=== PATIENT | male | born 1960 | race Caucasian/White ===

== ENCOUNTER 2019-05-17 13:55 | Emergency (ER) | payer MEDICARE, MEDICAID ==
[~2019-05-17] VITALS: Ht 175.3 cm; Wt 78.0 kg
[~2019-05-17 13:55] MED LIST: ALBU0.63 NEB; ALBU2.5V NEB; AMOX1TAB12 PO; BENZ1TAB61 PO; BENZ2AMP4 PO; BUDE180A INH; DIAZ5TAB4 PO; DOCU240C53 PO; FLUO10CA13 PO; FLUT12AE2; HALO5TAB5 PO; LEVO750T26 PO; METF100010 PO; METH32TA PO; MIRT-34 PO; MIRT30TA4 PO; MULT-486 PO; MULT1CAP33 PO; NICO-487 TD; PRED-402 PO; PRED20TA PO; PRED50TA PO; PRO AIR; TIOT18CA INH
--- NOTE | 2019-05-17 14:15 | NUR ---
MD AT BEDSIDE FOR EXAM, NEW ORDERS RECEIVED.
[2019-05-17 14:20] VITALS: BP 109/67
--- NOTE | 2019-05-17 14:21 | NUR ---
PT ARRIVED TO ROOM 17 BIB [facility] FOR CHEST PRESSURE WHEN BEARING DOWN FOR BM, PER [facility] REPORT, CHEST PRESSURE RESOLVED WHEN PT STOPPED BEARING DOWN. PT ALERT, DRESSED IN GOWN AND ATTACHED TO MONITOR, CALL LIGHT WITHIN REACH AND SIDERAILS X [address] PIV ESTABLISHED COOK ENCHILADA BY EMS, PT WEARING 3L O2, HOME O2 FOR HX COPD. PT HAS HX STROKE AND HAS APHASIA AND SLURRED SPEECH BASELINE.
[2019-05-17 14:31] LABS: TROPONIN I < 0.015 ng/mL (0.000-0.045)
--- NOTE | 2019-05-17 14:58 | NUR ---
PLAN TO DISCHARGE PT, PT TO D/C VIA [facility].
--- NOTE | 2019-05-17 15:44 | NUR ---
PIV REMOVED, PT TO D/C AT 1600 VIA [facility].
--- NOTE | 2019-05-17 15:57 | NUR ---
PT D/C BACK TO [facility] WITH [facility]. Patient/Caregiver given discharge instructions and they have confirmed that they understand the instructions. Patient ESCORTED OUT VIA WHEELCHAIR.
== END 2019-05-17 15:58 | disposition home or self-care (01) ==
LOC: ED 15:22
DX: R07.89 Other chest pain (principal); I10 Essential (primary) hypertension; I48.91 Unspecified atrial fibrillation; J44.9 Chronic obstructive pulmonary disease, unspecified; F20.9 Schizophrenia, unspecified; I25.2 Old myocardial infarction
CPT/HCPCS: 36415; 71045; 84484; 93005; 99284

== ENCOUNTER 2019-08-01 12:39 | Inpatient (IN) | payer MEDICARE, MEDICAID ==
[~2019-08-01] VITALS: Ht 172.7 cm; Wt 75.6 kg
[~2019-08-01 12:39] MED LIST changes: +MIDAZOLAM 1 MG/ML, 5ML ONE; +PROPOFOL 100 ML IV ONE; +SUCCINYLCHOLINE 20 MG/ML, 10ML ONE; +VECURONIUM 10 MG ONE
--- NOTE | 2019-08-01 12:44 | NUR ---
MD Rodney & RT Cassie at [facility] preparing to intubate d/t pt's respiratory distress. 20 mg etomidate administered at this time 100 succ @ 1245 Pt successfully intubated @ 1246, 8.0 ETT 24 @ the lips.
[2019-08-01] MEDS ORDERED: SODIUM CHLORIDE 0.9% 1,000 ML IV ONE (12:49)
[2019-08-01] MEDS ORDERED: SODIUM CHLORIDE 0.9% 1,000ML IVBOLUS ONE (13:00)
[2019-08-01] MEDS ORDERED: methylPREDNISolone SOD SUCC 125 MG/2 ML IV ONE (13:00)
[2019-08-01] MEDS ORDERED: ETOMIDATE 20 MG/10 ML IV ONE (13:00)
[2019-08-01] MEDS ORDERED: MIDAZOLAM 1 MG/ML, 2ML IVPush ONE (13:00)
[2019-08-01] MEDS ORDERED: SODIUM CHLORIDE FLUSH 10ML SYR IVF ONE (13:00)
[2019-08-01] MEDS ORDERED: SUCCINYLCHOLINE 20 MG/ML, 10ML IVPush ONE (13:00)
[2019-08-01] MEDS ORDERED: PROPOFOL 100 ML IV PRN ×2 (13:08→14:51)
[2019-08-01 13:25] LABS: FIO2 70 %
[2019-08-01 13:28] LABS: MEAN CORPUSCULAR HEMOGLOBIN 32.1 pg (27.5-34.5); MEAN CORPUSCULAR HGB CONC 32.8 g/dL (33.2-36.2); MEAN CORPUSCULAR VOLUME 98.1 fL (81-97); MEAN PLATELET VOLUME 6.7 fL (7.4-10.4); PLATELET COUNT 345 x10^3/uL (130-400); RED BLOOD COUNT 3.73 x10^6/uL (4.38-5.82); RED CELL DISTRIBUTION WIDTH 14.3 % (9.4-14.8)
--- NOTE | 2019-08-01 13:30 | NUR ---
NG & hancock being placed, pt recieving 2L bolus, pt has received 400mL [employer] from [facility]. see paper chart for vital signs.
[2019-08-01 13:41] LABS: ALANINE AMINOTRANSFERASE 14 U/L (12-78); ALBUMIN 2.7 g/dL (3.4-5.0); ANION GAP 6 mmol/L (5-15); CALCIUM 8.2 mg/dL (8.5-10.1); CHLORIDE 100 mmol/L (98-107); CREATININE 1.76 mg/dL (0.7-1.3)
[2019-08-01 13:45] LABS: ALKALINE PHOSPHATASE 61 U/L (45-117); BILIRUBIN,TOTAL 0.4 mg/dL (0.2-1.0); INTERNATIONAL NORMALIZED RATIO 2.26 (0.93-1.1); TOTAL PROTEIN 5.4 g/dL (6.4-8.2); TROPONIN I < 0.015 ng/mL (0.000-0.045)
[2019-08-01] MEDS ORDERED: AZITHROMYCIN 500 MG in SODIUM CHLORIDE 0.9% 250 ML IVPB ONE (14:00)
[2019-08-01] MEDS ORDERED: CEFTRIAXONE PMX 1GM/50ML 50 ML IVPB ONE (14:00)
[2019-08-01] MEDS ORDERED: methylPREDNISolone SOD SUCC 125 MG/2 ML ONE (14:01)
[2019-08-01 14:02] LABS: MD YES
[2019-08-01 14:03] LABS: BANDS%(MANUAL) 13 % (0-7); LYMPH#(MANUAL) 0.62 x10^3/uL (1-3.4); LYMPHS% (MANUAL) 3 % (22-44); METAMYELOCYTES# (MANUAL) 0.21 x10^3/uL (0-0); METAMYELOCYTES% (MANUAL) 1 % (0-1); MONOS#(MANUAL) 0.42 x10^3/uL (0.3-2.7); MONOS% (MANUAL) 2 % (2-9); SEG#(MANUAL) 16.85 x10^3/uL (1.8-6.8); SEGS% (MANUAL) 81 % (42-75)
[2019-08-01 14:05] LABS: <PLATELET ESTIMATE> ADEQUATE; <PLT MORPHOLOGY> NORMAL PLT MORPH; <RBC MORPHOLOGY> NORMAL; TOXIC GRAN 1+
[2019-08-01] MEDS ORDERED: NOREPINEPHRINE 4 MG in SODIUM CHLORIDE 0.9% 246 ML IV PRN (14:29)
--- NOTE | 2019-08-01 14:46 | NUR ---
MD Rodney at bedside placing CVL for initiation of vasopressors
[2019-08-01] MEDS: SODIUM CHLORIDE 0.9% 1,000 ML IV SCH ×2 (15:00→21:43)
[2019-08-01] MEDS ORDERED: LIDOCAINE-MPF 1%, 2ML ENDO PRN (15:00)
[2019-08-01] MEDS ORDERED: CEFTRIAXONE PMX 1GM/50ML 50 ML IV SCH (15:00)
[2019-08-01] MEDS ORDERED: SENNA 176 MG/5 ML ORAL SOL NG PRN (15:00)
[2019-08-01] MEDS ORDERED: ENOXAPARIN 40 MG/0.4 ML SQ SCH (15:00)
[2019-08-01] MEDS ORDERED: LACTULOSE 20 GM/30 ML UDC NG PRN (15:00)
[2019-08-01] MEDS ORDERED: PHARMACY MAY ADJ FOR RENAL FX MC SCH (15:00)
[2019-08-01] MEDS ORDERED: BISACODYL 10 MG SUPP PR PRN (15:00)
[2019-08-01] MEDS ORDERED: CEFTRIAXONE PMX 1GM/50ML 50 ML ONE (15:03)
[2019-08-01] MEDS ORDERED: SODIUM CHLORIDE FLUSH 10ML SYR IVF PRN (15:30)
[2019-08-01] MEDS ORDERED: MIDAZOLAM 1 MG/ML, 5ML IVPush ONE (16:00)
[2019-08-01] MEDS ORDERED: VECURONIUM 10 MG IVPush ONE (16:00)
[2019-08-01] MEDS ORDERED: AMIODARONE 200 MG TABLET PO ONE (16:00)
[2019-08-01] MEDS: RIVAROXABAN 20 MG TABLET PO SCH (16:27)
[2019-08-01] MEDS: FAMOTIDINE 20 MG/2 ML IV SCH ×2 (16:29→21:39)
[2019-08-01 17:41] LABS: AMPHETAMINE SCREEN, URINE Negative (Negative); BARBITURATE SCREEN, URINE Negative (Negative); BENZODIAZEPINE SCREEN, URINE Positive (Negative); CANNABINOID SCREEN, URINE Negative (Negative); COCAINE SCREEN, URINE Negative (Negative); METHADONE SCREEN, URINE Negative (Negative); OPIATE SCREEN, URINE Negative (Negative)
[2019-08-01] MEDS: ALBUTEROL/IPRATROPIUM 2.5MG/0.5MG, 3 ML INLINE SCH ×2 (18:15→22:15)
[2019-08-01] MEDS ORDERED: ALBUTEROL/IPRATROPIUM 2.5MG/0.5MG, 3 ML INLINE SCH (19:00)
[2019-08-01] MEDS ORDERED: IPRATROPIUM 0.5 MG/2.5 ML INHA NPPB SCH (21:00)
[2019-08-01] MEDS: BUDESONIDE 0.5 MG/2 ML INHA NPPB SCH (21:00)
[2019-08-01] MEDS: NOREPINEPHRINE 4 MG in SODIUM CHLORIDE 0.9% 246 ML IV PRN (21:38)
[2019-08-01] MEDS: RISPERIDONE 2 MG TABLET PO SCH (21:39)
[2019-08-01] MEDS: MIRTAZAPINE 15 MG TABLET PO SCH (21:39)
[2019-08-01] MEDS: BENZTROPINE 1 MG TABLET PO SCH (21:39)
[2019-08-01] MEDS: methylPREDNISolone SOD SUCC 125 MG/2 ML IVPush SCH (21:39)
[2019-08-02] MEDS: NOREPINEPHRINE 4 MG in SODIUM CHLORIDE 0.9% 246 ML IV PRN (00:56)
[2019-08-02] MEDS: ALBUTEROL/IPRATROPIUM 2.5MG/0.5MG, 3 ML INLINE SCH ×3 (01:56→11:00)
[2019-08-02] MEDS: FAMOTIDINE 20 MG/2 ML IV SCH ×2 (02:08→15:37)
[2019-08-02] MEDS: methylPREDNISolone SOD SUCC 125 MG/2 ML IVPush SCH ×4 (02:08→22:11)
[2019-08-02 03:59] VITALS: BP 134/78
[2019-08-02 04:58] LABS: MEAN CORPUSCULAR HEMOGLOBIN 32.1 pg (27.5-34.5); MEAN CORPUSCULAR HGB CONC 32.7 g/dL (33.2-36.2); MEAN CORPUSCULAR VOLUME 98.2 fL (81-97); MEAN PLATELET VOLUME 6.9 fL (7.4-10.4); PLATELET COUNT 332 x10^3/uL (130-400); RED BLOOD COUNT 3.76 x10^6/uL (4.38-5.82); RED CELL DISTRIBUTION WIDTH 14.7 % (9.4-14.8)
[2019-08-02 05:05] LABS: ANION GAP 3 mmol/L (5-15); CALCIUM 8.3 mg/dL (8.5-10.1); CHLORIDE 111 mmol/L (98-107); CREATININE 0.79 mg/dL (0.7-1.3)
[2019-08-02 05:07] LABS: MD YES
[2019-08-02 05:09] LABS: BANDS%(MANUAL) 16 % (0-7); LYMPH#(MANUAL) 1.02 x10^3/uL (1-3.4); LYMPHS% (MANUAL) 4 % (22-44); METAMYELOCYTES# (MANUAL) 2.05 x10^3/uL (0-0); METAMYELOCYTES% (MANUAL) 8 % (0-1); SEG#(MANUAL) 18.43 x10^3/uL (1.8-6.8); SEGS% (MANUAL) 72 % (42-75)
[2019-08-02 05:10] LABS: <PLATELET ESTIMATE> ADEQUATE; <PLT MORPHOLOGY> NORMAL PLT MORPH; <RBC MORPHOLOGY> NORMAL
[2019-08-02] MEDS: BUDESONIDE 0.5 MG/2 ML INHA NPPB SCH ×3 (06:38→19:37)
[2019-08-02] MEDS: FLUOXETINE HCL 20 MG CAPSULE PO SCH (08:15)
[2019-08-02] MEDS: BENZTROPINE 1 MG TABLET PO SCH ×2 (08:15→20:26)
[2019-08-02] MEDS: RISPERIDONE 2 MG TABLET PO SCH ×2 (08:15→20:26)
[2019-08-02] MEDS: ACETAMINOPHEN 325 MG TABLET PO PRN (08:15)
[2019-08-02] MEDS ORDERED: BUDESONIDE 180 MCG INH SCH (09:00)
[2019-08-02] MEDS ORDERED: TEMPLATE NON-FORMULARY MED. (Tiotropium Bromide** (Spiriva**) 18 MCG) INH SCH (09:00)
[2019-08-02] MEDS: DOXYCYCLINE 100 MG in DEXTROSE 5% 250 ML IV SCH ×2 (10:34→22:11)
[2019-08-02] MEDS: ALBUTEROL/IPRATROPIUM 2.5MG/0.5MG, 3 ML NPPB SCH ×4 (11:00→20:05)
[2019-08-02] MEDS: SODIUM CHLORIDE 0.9% 1,000 ML IV SCH (12:00)
[2019-08-02] MEDS ORDERED: ALBUTEROL/IPRATROPIUM 2.5MG/0.5MG, 3 ML NPPB SCH (15:00)
[2019-08-02] MEDS ORDERED: AZITHROMYCIN 500 MG in SODIUM CHLORIDE 0.9% 250 ML IV SCH (15:00)
[2019-08-02] MEDS: RIVAROXABAN 20 MG TABLET PO SCH (18:31)
[2019-08-02 18:45] VITALS: BP 110/72
[2019-08-02] MEDS: MIRTAZAPINE 15 MG TABLET PO SCH (20:26)
[2019-08-03 00:02] VITALS: BP 119/74
[2019-08-03] MEDS: ALBUTEROL/IPRATROPIUM 2.5MG/0.5MG, 3 ML NPPB SCH ×5 (02:41→20:33)
[2019-08-03 04:00] VITALS: BP 120/80
[2019-08-03] MEDS: FAMOTIDINE 20 MG/2 ML IV SCH (04:15)
[2019-08-03] MEDS: methylPREDNISolone SOD SUCC 125 MG/2 ML IVPush SCH ×2 (04:15→09:30)
[2019-08-03 05:58] LABS: MEAN CORPUSCULAR HEMOGLOBIN 31.3 pg (27.5-34.5); MEAN CORPUSCULAR HGB CONC 32.3 g/dL (33.2-36.2); MEAN CORPUSCULAR VOLUME 96.8 fL (81-97); MEAN PLATELET VOLUME 7.1 fL (7.4-10.4); PLATELET COUNT 298 x10^3/uL (130-400); RED BLOOD COUNT 3.29 x10^6/uL (4.38-5.82); RED CELL DISTRIBUTION WIDTH 15.1 % (9.4-14.8)
[2019-08-03 06:06] LABS: ANION GAP 4 mmol/L (5-15); CALCIUM 9.3 mg/dL (8.5-10.1); CHLORIDE 110 mmol/L (98-107); CREATININE 0.54 mg/dL (0.7-1.3)
[2019-08-03 06:20] LABS: MD YES
[2019-08-03 06:23] LABS: BAND#(MANUAL) 2.22 x10^3/uL; BANDS%(MANUAL) 12 % (0-7); LYMPH#(MANUAL) 0.19 x10^3/uL (1-3.4); LYMPHS% (MANUAL) 1 % (22-44); MONOS#(MANUAL) 0.37 x10^3/uL (0.3-2.7); MONOS% (MANUAL) 2 % (2-9); SEG#(MANUAL) 15.73 x10^3/uL (1.8-6.8); SEGS% (MANUAL) 85 % (42-75)
[2019-08-03 06:29] LABS: <PLATELET ESTIMATE> ADEQUATE; <PLT MORPHOLOGY> NORMAL PLT MORPH
[2019-08-03 06:30] LABS: ANISOCYTOSIS 1+; OVALOCYTES 1+
[2019-08-03] MEDS: DOXYCYCLINE 100 MG in DEXTROSE 5% 250 ML IV SCH (09:00)
[2019-08-03] MEDS: BUDESONIDE 0.5 MG/2 ML INHA NPPB SCH ×3 (09:00→20:33)
[2019-08-03] MEDS: RISPERIDONE 2 MG TABLET PO SCH ×2 (11:31→20:45)
[2019-08-03] MEDS: FLUOXETINE HCL 20 MG CAPSULE PO SCH (11:33)
[2019-08-03] MEDS: CEFTRIAXONE PMX 2GM/50ML 50 ML IV SCH (11:33)
[2019-08-03] MEDS: BENZTROPINE 1 MG TABLET PO SCH ×2 (11:33→20:45)
[2019-08-03 11:37] VITALS: BP 129/75
[2019-08-03] MEDS: RIVAROXABAN 20 MG TABLET PO SCH (18:00)
[2019-08-03] MEDS: MIRTAZAPINE 15 MG TABLET PO SCH (20:45)
[2019-08-03 21:44] VITALS: BP 115/77
[2019-08-04] MEDS: ALBUTEROL/IPRATROPIUM 2.5MG/0.5MG, 3 ML NPPB SCH ×4 (02:01→21:00)
[2019-08-04 02:06] VITALS: BP 110/74
[2019-08-04 04:45] LABS: BASOPHILS % (AUTO) 0 % (0-1); EOSINOPHILS # (AUTO) 0.02 x10^3/uL (0-0.4); EOSINOPHILS % (AUTO) 0 % (1-7); LYMPHOCYTES # (AUTO) 1.02 x10^3/uL (1-3.4); LYMPHOCYTES % (AUTO) 7 % (22-44); MD NO; MEAN CORPUSCULAR HEMOGLOBIN 32.1 pg (27.5-34.5); MEAN CORPUSCULAR HGB CONC 32.5 g/dL (33.2-36.2); MEAN CORPUSCULAR VOLUME 98.7 fL (81-97); MEAN PLATELET VOLUME 7.4 fL (7.4-10.4); MONOCYTES # (AUTO) 0.99 x10^3/uL (0.2-0.8); MONOCYTES % (AUTO) 7 % (2-9); NEUTROPHILS # (AUTO) 13.29 x10^3/uL (1.8-6.8); NEUTROPHILS % (AUTO) 87 % (42-75); PLATELET COUNT 318 x10^3/uL (130-400); RED BLOOD COUNT 3.15 x10^6/uL (4.38-5.82)
[2019-08-04 04:57] LABS: CHLORIDE 107 mmol/L (98-107)
[2019-08-04 05:01] LABS: ANION GAP 1 mmol/L (5-15); CALCIUM 9.1 mg/dL (8.5-10.1); CREATININE 0.54 mg/dL (0.7-1.3)
[2019-08-04 07:47] VITALS: BP 129/77
[2019-08-04] MEDS: FERROUS SULFATE 325 MG TABLET PO SCH (08:32)
[2019-08-04] MEDS: FLUOXETINE HCL 20 MG CAPSULE PO SCH (08:33)
[2019-08-04] MEDS: RISPERIDONE 2 MG TABLET PO SCH ×2 (08:33→19:59)
[2019-08-04] MEDS: BENZTROPINE 1 MG TABLET PO SCH ×2 (08:33→19:59)
[2019-08-04] MEDS: CEFTRIAXONE PMX 2GM/50ML 50 ML IV SCH (10:26)
[2019-08-04] MEDS ORDERED: DILTIAZEM 5 MG/ML, 5ML IVPush ONE (11:30)
[2019-08-04] MEDS ORDERED: DILTIAZEM 5 MG/ML, 5ML IVPush PRN (11:30)
[2019-08-04] MEDS: SODIUM CHLORIDE 0.9% 1,000 ML IV SCH (11:44)
[2019-08-04] MEDS ORDERED: DILTIAZEM 125 MG in SODIUM CHLORIDE 0.9% 100 ML IV PRN (12:30)
[2019-08-04 12:52] VITALS: BP 129/84
[2019-08-04] MEDS ORDERED: AMIODARONE 150 MG in DEXTROSE 5% 100 ML IV ONE (13:00)
[2019-08-04] MEDS ORDERED: FILTER 0.22 MICRON FOR AMIODARONE IV PRN (13:00)
[2019-08-04] MEDS: AMIODARONE 900 MG in DEXTROSE 5% 482 ML IV PRN (13:20)
[2019-08-04] MEDS: BUDESONIDE 0.5 MG/2 ML INHA NPPB SCH ×2 (14:00→21:00)
[2019-08-04 14:43] LABS: TROPONIN I < 0.015 ng/mL (0.000-0.045)
[2019-08-04] MEDS: RIVAROXABAN 20 MG TABLET PO SCH (16:51)
[2019-08-04 19:22] VITALS: BP 136/83
[2019-08-04] MEDS: MIRTAZAPINE 15 MG TABLET PO SCH (19:59)
[2019-08-05] MEDS: SODIUM CHLORIDE 0.9% 1,000 ML IV SCH (01:20)
[2019-08-05] MEDS: ALBUTEROL/IPRATROPIUM 2.5MG/0.5MG, 3 ML NPPB SCH ×4 (03:00→22:21)
[2019-08-05 03:38] VITALS: BP 103/58
[2019-08-05 05:49] LABS: CALCIUM 8.9 mg/dL (8.5-10.1); CHLORIDE 104 mmol/L (98-107)
[2019-08-05 05:52] LABS: ANION GAP 2 mmol/L (5-15)
[2019-08-05 06:58] LABS: BASOPHILS # (AUTO) 0.01 x10^3/uL (0-0.1); BASOPHILS % (AUTO) 0 % (0-1); EOSINOPHILS # (AUTO) 0.01 x10^3/uL (0-0.4); EOSINOPHILS % (AUTO) 0 % (1-7); LYMPHOCYTES # (AUTO) 1.09 x10^3/uL (1-3.4); LYMPHOCYTES % (AUTO) 8 % (22-44); MD NO; MEAN CORPUSCULAR HGB CONC 32.3 g/dL (33.2-36.2); MEAN CORPUSCULAR VOLUME 99.1 fL (81-97); MEAN PLATELET VOLUME 7.3 fL (7.4-10.4); MONOCYTES # (AUTO) 1.07 x10^3/uL (0.2-0.8); MONOCYTES % (AUTO) 8 % (2-9); NEUTROPHILS # (AUTO) 11.69 x10^3/uL (1.8-6.8); NEUTROPHILS % (AUTO) 84 % (42-75); PLATELET COUNT 307 x10^3/uL (130-400); RED BLOOD COUNT 3.19 x10^6/uL (4.38-5.82); RED CELL DISTRIBUTION WIDTH 15.2 % (9.4-14.8)
[2019-08-05] MEDS: BUDESONIDE 0.5 MG/2 ML INHA NPPB SCH ×2 (07:15→22:21)
[2019-08-05 07:48] VITALS: BP 113/65
[2019-08-05] MEDS: BENZTROPINE 1 MG TABLET PO SCH ×2 (09:51→19:44)
[2019-08-05] MEDS: RISPERIDONE 2 MG TABLET PO SCH ×2 (09:52→19:44)
[2019-08-05] MEDS: FLUOXETINE HCL 20 MG CAPSULE PO SCH (09:52)
[2019-08-05] MEDS: FERROUS SULFATE 325 MG TABLET PO SCH (09:52)
[2019-08-05] MEDS: SENNA/DOCUSATE TABLET NG PRN (10:01)
[2019-08-05] MEDS: CEFTRIAXONE PMX 2GM/50ML 50 ML IV SCH ×2 (10:13→10:38)
[2019-08-05] MEDS: AMIODARONE 200 MG TABLET PO SCH ×2 (11:29→19:44)
[2019-08-05 12:46] VITALS: BP 123/44
[2019-08-05] MEDS: RIVAROXABAN 20 MG TABLET PO SCH (17:00)
[2019-08-05 17:46] VITALS: BP 120/76
[2019-08-05 19:26] VITALS: BP 147/64
[2019-08-05] MEDS: MIRTAZAPINE 15 MG TABLET PO SCH (19:44)
[2019-08-05] MEDS ORDERED: DILTIAZEM 5 MG/ML, 5ML IVPush ONE (20:30)
[2019-08-06 00:27] VITALS: BP 117/73
[2019-08-06] MEDS: ALBUTEROL/IPRATROPIUM 2.5MG/0.5MG, 3 ML NPPB SCH ×4 (03:00→22:16)
[2019-08-06 05:37] LABS: MEAN CORPUSCULAR HGB CONC 32.6 g/dL (33.2-36.2); MEAN CORPUSCULAR VOLUME 98.1 fL (81-97); MEAN PLATELET VOLUME 7.1 fL (7.4-10.4); PLATELET COUNT 354 x10^3/uL (130-400); RED BLOOD COUNT 3.36 x10^6/uL (4.38-5.82); RED CELL DISTRIBUTION WIDTH 14.9 % (9.4-14.8)
[2019-08-06 05:40] LABS: ANION GAP 0 mmol/L (5-15); CALCIUM 8.9 mg/dL (8.5-10.1); CHLORIDE 102 mmol/L (98-107); CREATININE 0.46 mg/dL (0.7-1.3)
[2019-08-06 06:13] LABS: MD YES
[2019-08-06 06:16] LABS: BAND#(MANUAL) 0.13 x10^3/uL; BANDS%(MANUAL) 1 % (0-7); EOS#(MANUAL) 0.26 x10^3/uL (0.0-0.4); EOS% (MANUAL) 2 % (1-7); LYMPH#(MANUAL) 1.41 x10^3/uL (1-3.4); LYMPHS% (MANUAL) 11 % (22-44); MONOS#(MANUAL) 1.54 x10^3/uL (0.3-2.7); MONOS% (MANUAL) 12 % (2-9); SEG#(MANUAL) 9.47 x10^3/uL (1.8-6.8); SEGS% (MANUAL) 74 % (42-75)
[2019-08-06 06:17] LABS: <PLATELET ESTIMATE> ADEQUATE; <PLT MORPHOLOGY> NORMAL PLT MORPH; OVALOCYTES 1+
[2019-08-06] MEDS ORDERED: MAGNESIUM SULFATE PMX 2GM/50ML 50 ML IV ONE (06:30)
[2019-08-06 07:44] VITALS: BP 112/72
[2019-08-06] MEDS: RISPERIDONE 2 MG TABLET PO SCH ×2 (07:44→20:50)
[2019-08-06] MEDS: FLUOXETINE HCL 20 MG CAPSULE PO SCH (07:45)
[2019-08-06] MEDS: AMIODARONE 200 MG TABLET PO SCH ×2 (07:45→20:50)
[2019-08-06] MEDS: BENZTROPINE 1 MG TABLET PO SCH ×2 (07:45→20:50)
[2019-08-06] MEDS: FERROUS SULFATE 325 MG TABLET PO SCH (07:45)
[2019-08-06] MEDS: BUDESONIDE 0.5 MG/2 ML INHA NPPB SCH ×2 (08:35→22:16)
[2019-08-06] MEDS: SODIUM CHLORIDE 0.9% 1,000 ML IV SCH ×2 (08:51→20:49)
[2019-08-06] MEDS: CEFTRIAXONE PMX 2GM/50ML 50 ML IV SCH (09:58)
[2019-08-06 12:15] VITALS: BP 100/58
[2019-08-06] MEDS: RIVAROXABAN 20 MG TABLET PO SCH (17:34)
[2019-08-06 18:05] VITALS: BP 137/68
[2019-08-06] MEDS: SENNA/DOCUSATE TABLET NG PRN (20:49)
[2019-08-06] MEDS: POLYETHYLENE GLYCOL 17 GM PACKET PO PRN (20:49)
[2019-08-06] MEDS: MIRTAZAPINE 15 MG TABLET PO SCH (20:50)
[2019-08-07 00:13] VITALS: BP 100/62
[2019-08-07] MEDS: ALBUTEROL/IPRATROPIUM 2.5MG/0.5MG, 3 ML NPPB SCH ×4 (02:40→18:44)
[2019-08-07 03:26] LABS: MEAN CORPUSCULAR HGB CONC 32.1 g/dL (33.2-36.2); MEAN CORPUSCULAR VOLUME 99.6 fL (81-97); MEAN PLATELET VOLUME 6.9 fL (7.4-10.4); PLATELET COUNT 393 x10^3/uL (130-400); RED BLOOD COUNT 3.17 x10^6/uL (4.38-5.82); RED CELL DISTRIBUTION WIDTH 14.4 % (9.4-14.8)
[2019-08-07 03:31] LABS: MD YES
[2019-08-07 03:37] LABS: CALCIUM 8.7 mg/dL (8.5-10.1); CHLORIDE 100 mmol/L (98-107); CREATININE 0.46 mg/dL (0.7-1.3); TRIGLYCERIDES 51 mg/dL (50-200)
[2019-08-07 03:40] LABS: BAND#(MANUAL) 0.24 x10^3/uL; BANDS%(MANUAL) 2 % (0-7); EOS#(MANUAL) 0.12 x10^3/uL (0.0-0.4); EOS% (MANUAL) 1 % (1-7); LYMPH#(MANUAL) 1.92 x10^3/uL (1-3.4); LYMPHS% (MANUAL) 16 % (22-44); MONOS#(MANUAL) 1.32 x10^3/uL (0.3-2.7); MONOS% (MANUAL) 11 % (2-9); SEGS% (MANUAL) 70 % (42-75)
[2019-08-07 03:41] LABS: <PLATELET ESTIMATE> INCREASED; ANISOCYTOSIS 1+; OVALOCYTES 1+; POLYCHROMASIA 1+; TOXIC GRAN 1+
[2019-08-07 03:42] LABS: <PLT MORPHOLOGY> NORMAL PLT MORPH
[2019-08-07 03:47] LABS: ANION GAP 1 mmol/L (5-15); FREE T4 (FREE THYROXINE) 1.44 ng/dL (0.76-1.46)
[2019-08-07] MEDS: SODIUM CHLORIDE 0.9% 1,000 ML IV SCH ×2 (06:00→16:49)
[2019-08-07] MEDS: FLUOXETINE HCL 20 MG CAPSULE PO SCH (08:09)
[2019-08-07] MEDS: FERROUS SULFATE 325 MG TABLET PO SCH (08:09)
[2019-08-07] MEDS: BENZTROPINE 1 MG TABLET PO SCH ×2 (08:09→20:28)
[2019-08-07] MEDS: AMIODARONE 200 MG TABLET PO SCH ×2 (08:09→20:28)
[2019-08-07] MEDS: RISPERIDONE 2 MG TABLET PO SCH ×2 (08:09→20:28)
[2019-08-07] MEDS: BUDESONIDE 0.5 MG/2 ML INHA NPPB SCH ×2 (08:43→18:44)
[2019-08-07 09:04] VITALS: BP 91/56
[2019-08-07] MEDS: CEFTRIAXONE PMX 2GM/50ML 50 ML IV SCH (10:41)
[2019-08-07 15:42] VITALS: BP 108/62
[2019-08-07] MEDS: RIVAROXABAN 20 MG TABLET PO SCH (16:48)
[2019-08-07 18:59] VITALS: BP 125/68
[2019-08-07] MEDS: MIRTAZAPINE 15 MG TABLET PO SCH (20:28)
[2019-08-07] MEDS: SENNA/DOCUSATE TABLET NG PRN (20:28)
[2019-08-08] MEDS: SODIUM CHLORIDE 0.9% 1,000 ML IV SCH ×3 (01:07→23:30)
[2019-08-08 01:11] VITALS: BP 127/78
[2019-08-08] MEDS: ALBUTEROL/IPRATROPIUM 2.5MG/0.5MG, 3 ML NPPB SCH ×4 (02:42→20:36)
[2019-08-08 04:34] LABS: BASOPHILS # (AUTO) 0.12 x10^3/uL (0-0.1); BASOPHILS % (AUTO) 1 % (0-1); EOSINOPHILS # (AUTO) 0.49 x10^3/uL (0-0.4); EOSINOPHILS % (AUTO) 5 % (1-7); LYMPHOCYTES # (AUTO) 1.37 x10^3/uL (1-3.4); LYMPHOCYTES % (AUTO) 14 % (22-44); MD NO; MEAN CORPUSCULAR HEMOGLOBIN 31.9 pg (27.5-34.5); MEAN CORPUSCULAR VOLUME 99.8 fL (81-97); MEAN PLATELET VOLUME 6.6 fL (7.4-10.4); MONOCYTES # (AUTO) 0.91 x10^3/uL (0.2-0.8); MONOCYTES % (AUTO) 9 % (2-9); NEUTROPHILS # (AUTO) 6.95 x10^3/uL (1.8-6.8); NEUTROPHILS % (AUTO) 71 % (42-75); PLATELET COUNT 447 x10^3/uL (130-400); RED CELL DISTRIBUTION WIDTH 14.8 % (9.4-14.8)
[2019-08-08 04:44] LABS: ANION GAP 1 mmol/L (5-15); CALCIUM 8.2 mg/dL (8.5-10.1); CHLORIDE 101 mmol/L (98-107); CREATININE 0.35 mg/dL (0.7-1.3)
[2019-08-08 09:18] VITALS: BP 110/56
[2019-08-08] MEDS: BUDESONIDE 0.5 MG/2 ML INHA NPPB SCH ×2 (09:36→20:36)
[2019-08-08 10:27] VITALS: BP 117/83
[2019-08-08] MEDS: AMIODARONE 200 MG TABLET PO SCH ×2 (10:35→20:28)
[2019-08-08] MEDS: FLUOXETINE HCL 20 MG CAPSULE PO SCH (10:35)
[2019-08-08] MEDS: CEFTRIAXONE PMX 2GM/50ML 50 ML IV SCH (10:35)
[2019-08-08] MEDS: FERROUS SULFATE 325 MG TABLET PO SCH (10:35)
[2019-08-08] MEDS: RISPERIDONE 2 MG TABLET PO SCH ×2 (10:35→20:28)
[2019-08-08] MEDS: BENZTROPINE 1 MG TABLET PO SCH ×2 (10:35→20:27)
[2019-08-08] MEDS: methylPREDNISolone SOD SUCC 125 MG/2 ML IVPush SCH (12:12)
[2019-08-08] MEDS ORDERED: AcetaZOLAMIDE INJ 500 MG ONE (13:38)
[2019-08-08] MEDS ORDERED: AcetaZOLAMIDE INJ 500 MG IVPush SCH (14:00)
[2019-08-08] MEDS: RIVAROXABAN 20 MG TABLET PO SCH (18:16)
[2019-08-08] MEDS: MIRTAZAPINE 15 MG TABLET PO SCH (20:28)
[2019-08-09] MEDS: methylPREDNISolone SOD SUCC 125 MG/2 ML IVPush SCH ×3 (00:05→23:59)
[2019-08-09] MEDS: ALBUTEROL/IPRATROPIUM 2.5MG/0.5MG, 3 ML NPPB SCH ×4 (02:00→21:20)
[2019-08-09 05:58] LABS: BASOPHILS # (AUTO) 0.01 x10^3/uL (0-0.1); BASOPHILS % (AUTO) 0 % (0-1); EOSINOPHILS # (AUTO) 0.14 x10^3/uL (0-0.4); EOSINOPHILS % (AUTO) 1 % (1-7); LYMPHOCYTES # (AUTO) 0.58 x10^3/uL (1-3.4); LYMPHOCYTES % (AUTO) 6 % (22-44); MD NO; MEAN CORPUSCULAR HEMOGLOBIN 31.9 pg (27.5-34.5); MEAN CORPUSCULAR HGB CONC 32.2 g/dL (33.2-36.2); MEAN CORPUSCULAR VOLUME 99.1 fL (81-97); MEAN PLATELET VOLUME 6.7 fL (7.4-10.4); MONOCYTES # (AUTO) 0.08 x10^3/uL (0.2-0.8); MONOCYTES % (AUTO) 1 % (2-9); NEUTROPHILS # (AUTO) 9.64 x10^3/uL (1.8-6.8); NEUTROPHILS % (AUTO) 92 % (42-75); PLATELET COUNT 572 x10^3/uL (130-400); RED BLOOD COUNT 3.32 x10^6/uL (4.38-5.82); RED CELL DISTRIBUTION WIDTH 14.4 % (9.4-14.8)
[2019-08-09 06:07] LABS: ANION GAP 2 mmol/L (5-15); CALCIUM 8.9 mg/dL (8.5-10.1); CHLORIDE 103 mmol/L (98-107); CREATININE 0.47 mg/dL (0.7-1.3)
[2019-08-09] MEDS: FERROUS SULFATE 325 MG TABLET PO SCH (07:40)
[2019-08-09] MEDS: RISPERIDONE 2 MG TABLET PO SCH ×2 (07:40→20:47)
[2019-08-09] MEDS: BENZTROPINE 1 MG TABLET PO SCH ×2 (07:40→20:48)
[2019-08-09] MEDS: AMIODARONE 200 MG TABLET PO SCH ×2 (07:40→20:47)
[2019-08-09] MEDS: FLUOXETINE HCL 20 MG CAPSULE PO SCH (07:40)
[2019-08-09] MEDS ORDERED: AcetaZOLAMIDE INJ 500 MG IVPush ONE (08:30)
[2019-08-09] MEDS: BUDESONIDE 0.5 MG/2 ML INHA NPPB SCH ×2 (09:25→21:20)
[2019-08-09] MEDS: SODIUM CHLORIDE 0.9% 1,000 ML IV SCH (10:17)
[2019-08-09] MEDS: CEFTRIAXONE PMX 2GM/50ML 50 ML IV SCH (10:53)
[2019-08-09] MEDS: RIVAROXABAN 20 MG TABLET PO SCH (16:33)
[2019-08-09] MEDS: MIRTAZAPINE 15 MG TABLET PO SCH (20:48)
[2019-08-09] MEDS ORDERED: DOXYCYCLINE 100MG TABLET PO SCH (21:00)
[2019-08-10] MEDS: ALBUTEROL/IPRATROPIUM 2.5MG/0.5MG, 3 ML NPPB SCH ×4 (03:20→20:21)
[2019-08-10 04:42] LABS: ANION GAP 3 mmol/L (5-15); CHLORIDE 106 mmol/L (98-107)
[2019-08-10 04:44] LABS: BASOPHILS # (AUTO) 0.02 x10^3/uL (0-0.1); BASOPHILS % (AUTO) 0 % (0-1); CALCIUM 9.3 mg/dL (8.5-10.1); CREATININE 0.59 mg/dL (0.7-1.3); EOSINOPHILS # (AUTO) 0.19 x10^3/uL (0-0.4); EOSINOPHILS % (AUTO) 1 % (1-7); LYMPHOCYTES # (AUTO) 0.55 x10^3/uL (1-3.4); LYMPHOCYTES % (AUTO) 4 % (22-44); MD NO; MEAN CORPUSCULAR HEMOGLOBIN 31.8 pg (27.5-34.5); MEAN CORPUSCULAR HGB CONC 32.4 g/dL (33.2-36.2); MEAN CORPUSCULAR VOLUME 97.9 fL (81-97); MEAN PLATELET VOLUME 6.4 fL (7.4-10.4); MONOCYTES # (AUTO) 0.22 x10^3/uL (0.2-0.8); MONOCYTES % (AUTO) 1 % (2-9); NEUTROPHILS # (AUTO) 14.47 x10^3/uL (1.8-6.8); NEUTROPHILS % (AUTO) 94 % (42-75); PLATELET COUNT 560 x10^3/uL (130-400); RED BLOOD COUNT 3.31 x10^6/uL (4.38-5.82); RED CELL DISTRIBUTION WIDTH 14.4 % (9.4-14.8); TRIGLYCERIDES 57 mg/dL (50-200)
[2019-08-10] MEDS: RISPERIDONE 2 MG TABLET PO SCH ×2 (08:06→20:51)
[2019-08-10] MEDS: FERROUS SULFATE 325 MG TABLET PO SCH (08:06)
[2019-08-10] MEDS: FLUOXETINE HCL 20 MG CAPSULE PO SCH (08:06)
[2019-08-10] MEDS: BENZTROPINE 1 MG TABLET PO SCH ×2 (08:07→20:51)
[2019-08-10] MEDS: AMIODARONE 200 MG TABLET PO SCH ×2 (08:07→20:51)
[2019-08-10] MEDS: methylPREDNISolone SOD SUCC 125 MG/2 ML IVPush SCH ×3 (09:37→20:51)
[2019-08-10] MEDS: POLYETHYLENE GLYCOL 17 GM PACKET PO PRN (10:13)
[2019-08-10] MEDS: CEFTRIAXONE PMX 2GM/50ML 50 ML IV SCH (10:13)
[2019-08-10] MEDS: SENNA/DOCUSATE TABLET NG PRN (10:13)
[2019-08-10] MEDS: BUDESONIDE 0.5 MG/2 ML INHA NPPB SCH ×2 (10:44→20:21)
[2019-08-10] MEDS ORDERED: AMIODARONE 900 MG in DEXTROSE 5% 482 ML IV PRN (13:00)
[2019-08-10] MEDS: RIVAROXABAN 20 MG TABLET PO SCH (16:51)
[2019-08-10] MEDS: MIRTAZAPINE 15 MG TABLET PO SCH (20:51)
[2019-08-11] MEDS: ALBUTEROL/IPRATROPIUM 2.5MG/0.5MG, 3 ML NPPB SCH ×4 (02:44→21:34)
[2019-08-11] MEDS: methylPREDNISolone SOD SUCC 125 MG/2 ML IVPush SCH ×2 (03:53→08:24)
[2019-08-11 04:13] LABS: BASOPHILS % (AUTO) 0 % (0-1); EOSINOPHILS # (AUTO) 0.15 x10^3/uL (0-0.4); EOSINOPHILS % (AUTO) 1 % (1-7); LYMPHOCYTES % (AUTO) 4 % (22-44); MD NO; MEAN CORPUSCULAR HEMOGLOBIN 31.9 pg (27.5-34.5); MEAN CORPUSCULAR HGB CONC 32.5 g/dL (33.2-36.2); MEAN CORPUSCULAR VOLUME 98.3 fL (81-97); MEAN PLATELET VOLUME 6.3 fL (7.4-10.4); MONOCYTES # (AUTO) 0.49 x10^3/uL (0.2-0.8); MONOCYTES % (AUTO) 3 % (2-9); NEUTROPHILS # (AUTO) 15.18 x10^3/uL (1.8-6.8); NEUTROPHILS % (AUTO) 92 % (42-75); PLATELET COUNT 588 x10^3/uL (130-400); RED BLOOD COUNT 3.32 x10^6/uL (4.38-5.82); RED CELL DISTRIBUTION WIDTH 14.9 % (9.4-14.8)
[2019-08-11 04:30] LABS: ANION GAP 2 mmol/L (5-15); CALCIUM 8.6 mg/dL (8.5-10.1); CHLORIDE 106 mmol/L (98-107)
[2019-08-11 04:38] LABS: % IRON SATURATION 20 % (20-55); CREATININE 0.54 mg/dL (0.7-1.3); IRON LEVEL 55 mcg/dL (65-175); TOTAL IRON BINDING CAPACITY 269 mcg/dL (250-450); TRANSFERRIN 215 mg/dL (200-360)
[2019-08-11] MEDS: BUDESONIDE 0.5 MG/2 ML INHA NPPB SCH ×2 (07:22→21:34)
[2019-08-11 08:00] VITALS: BP 112/51
[2019-08-11] MEDS: BENZTROPINE 1 MG TABLET PO SCH ×2 (08:24→21:22)
[2019-08-11] MEDS: AMIODARONE 200 MG TABLET PO SCH ×2 (08:24→21:22)
[2019-08-11] MEDS: FLUOXETINE HCL 20 MG CAPSULE PO SCH (08:24)
[2019-08-11] MEDS: FERROUS SULFATE 325 MG TABLET PO SCH (08:24)
[2019-08-11] MEDS: RISPERIDONE 2 MG TABLET PO SCH ×2 (08:24→21:22)
[2019-08-11 10:55] VITALS: BP 111/64
[2019-08-11] MEDS: CEFTRIAXONE PMX 2GM/50ML 50 ML IV SCH (11:43)
[2019-08-11 12:03] VITALS: BP 108/68
[2019-08-11] MEDS: DIPHENHYDRAMINE 25 MG CAPSULE PO PRN ×2 (15:37→21:22)
[2019-08-11] MEDS: RIVAROXABAN 20 MG TABLET PO SCH (17:11)
[2019-08-11] MEDS: POLYETHYLENE GLYCOL 17 GM PACKET PO PRN (17:11)
[2019-08-11 18:42] VITALS: BP 116/80
[2019-08-11] MEDS: MIRTAZAPINE 15 MG TABLET PO SCH (21:22)
[2019-08-11 23:39] VITALS: BP 131/83
[2019-08-12 00:39] VITALS: BP 109/76
[2019-08-12] MEDS: ALBUTEROL/IPRATROPIUM 2.5MG/0.5MG, 3 ML NPPB SCH ×4 (02:22→20:38)
[2019-08-12] MEDS: BUDESONIDE 0.5 MG/2 ML INHA NPPB SCH ×2 (07:08→20:38)
[2019-08-12 08:04] VITALS: BP 115/75
[2019-08-12] MEDS: BENZTROPINE 1 MG TABLET PO SCH ×2 (09:22→20:34)
[2019-08-12] MEDS: FERROUS SULFATE 325 MG TABLET PO SCH (09:23)
[2019-08-12] MEDS: FLUOXETINE HCL 20 MG CAPSULE PO SCH (09:23)
[2019-08-12] MEDS: AMIODARONE 200 MG TABLET PO SCH ×2 (09:24→20:33)
[2019-08-12] MEDS: RISPERIDONE 2 MG TABLET PO SCH ×2 (09:24→20:33)
[2019-08-12 11:31] LABS: CHLORIDE 100 mmol/L (98-107)
[2019-08-12 11:32] LABS: CALCIUM 9.1 mg/dL (8.5-10.1); CREATININE 0.58 mg/dL (0.7-1.3)
[2019-08-12 11:48] LABS: ANION GAP 3 mmol/L (5-15)
[2019-08-12] MEDS: CEFTRIAXONE PMX 2GM/50ML 50 ML IV SCH (12:12)
[2019-08-12] MEDS: DIPHENHYDRAMINE 25 MG CAPSULE PO PRN ×2 (13:01→20:34)
[2019-08-12 13:04] VITALS: BP 116/62
[2019-08-12] MEDS: RIVAROXABAN 20 MG TABLET PO SCH (17:43)
[2019-08-12 20:30] VITALS: BP 110/73
[2019-08-12] MEDS: MIRTAZAPINE 15 MG TABLET PO SCH (20:33)
[2019-08-13 01:58] VITALS: BP 108/79
[2019-08-13] MEDS: ALBUTEROL/IPRATROPIUM 2.5MG/0.5MG, 3 ML NPPB SCH ×4 (03:48→20:46)
[2019-08-13 05:17] LABS: MEAN CORPUSCULAR HEMOGLOBIN 31.7 pg (27.5-34.5); MEAN CORPUSCULAR HGB CONC 32.2 g/dL (33.2-36.2); MEAN CORPUSCULAR VOLUME 98.5 fL (81-97); MEAN PLATELET VOLUME 6.4 fL (7.4-10.4); PLATELET COUNT 564 x10^3/uL (130-400); RED CELL DISTRIBUTION WIDTH 14.9 % (9.4-14.8)
[2019-08-13 05:22] LABS: CALCIUM 8.7 mg/dL (8.5-10.1); CREATININE 0.66 mg/dL (0.7-1.3)
[2019-08-13 05:40] LABS: CHLORIDE 103 mmol/L (98-107)
[2019-08-13 05:41] LABS: ANION GAP 2 mmol/L (5-15)
[2019-08-13 05:52] LABS: BASOPHILS # (AUTO) 0.04 x10^3/uL (0-0.1); BASOPHILS % (AUTO) 0 % (0-1); EOSINOPHILS # (AUTO) 0.38 x10^3/uL (0-0.4); EOSINOPHILS % (AUTO) 2 % (1-7); LYMPHOCYTES # (AUTO) 1.83 x10^3/uL (1-3.4); LYMPHOCYTES % (AUTO) 10 % (22-44); MD SCAN; MONOCYTES % (AUTO) 9 % (2-9); NEUTROPHILS # (AUTO) 14.83 x10^3/uL (1.8-6.8); NEUTROPHILS % (AUTO) 79 % (42-75)
[2019-08-13] MEDS: BUDESONIDE 0.5 MG/2 ML INHA NPPB SCH ×2 (06:41→20:46)
[2019-08-13 07:28] VITALS: BP 104/65
[2019-08-13] MEDS: FLUOXETINE HCL 20 MG CAPSULE PO SCH (08:32)
[2019-08-13] MEDS: FERROUS SULFATE 325 MG TABLET PO SCH (08:32)
[2019-08-13] MEDS: AMIODARONE 200 MG TABLET PO SCH (08:33)
[2019-08-13] MEDS: RISPERIDONE 2 MG TABLET PO SCH ×2 (08:33→21:11)
[2019-08-13] MEDS: BENZTROPINE 1 MG TABLET PO SCH ×2 (08:33→21:11)
[2019-08-13] MEDS: DIPHENHYDRAMINE 25 MG CAPSULE PO PRN ×3 (09:28→21:10)
[2019-08-13] MEDS: POLYETHYLENE GLYCOL 17 GM PACKET PO PRN (09:34)
[2019-08-13] MEDS: CEFTRIAXONE PMX 2GM/50ML 50 ML IV SCH (11:50)
[2019-08-13 12:57] VITALS: BP 113/58
[2019-08-13] MEDS ORDERED: AMIO200T42 PO (13:57)
[2019-08-13] MEDS ORDERED: RIVA20TA PO (13:57)
[2019-08-13] MEDS ORDERED: FLU VAC QS 19-20(4YR UP)CEL/PF 0.5 ML IM-VACC ONE (14:30)
[2019-08-13] MEDS ORDERED: FLU VACC QS2019-20 36MOS UP/PF 0.5 ML IM-VACC ONE (14:30)
[2019-08-13] MEDS: ACETAMINOPHEN 325 MG TABLET PO PRN (15:08)
[2019-08-13] MEDS: RIVAROXABAN 20 MG TABLET PO SCH (16:33)
[2019-08-13 19:18] VITALS: BP 121/57
[2019-08-13] MEDS: MIRTAZAPINE 15 MG TABLET PO SCH (21:11)
[2019-08-14 00:22] VITALS: BP 108/79
[2019-08-14] MEDS: ALBUTEROL/IPRATROPIUM 2.5MG/0.5MG, 3 ML NPPB SCH ×4 (02:05→22:47)
[2019-08-14 06:38] VITALS: BP 99/61
[2019-08-14] MEDS: BUDESONIDE 0.5 MG/2 ML INHA NPPB SCH ×2 (07:05→22:47)
[2019-08-14] MEDS: BENZTROPINE 1 MG TABLET PO SCH ×2 (08:06→20:52)
[2019-08-14] MEDS: RISPERIDONE 2 MG TABLET PO SCH ×2 (08:06→20:52)
[2019-08-14] MEDS: FERROUS SULFATE 325 MG TABLET PO SCH (08:06)
[2019-08-14] MEDS: FLUOXETINE HCL 20 MG CAPSULE PO SCH (08:06)
[2019-08-14] MEDS: AMIODARONE 200 MG TABLET PO SCH (08:07)
[2019-08-14] MEDS: DIPHENHYDRAMINE 25 MG CAPSULE PO PRN ×2 (11:35→20:59)
[2019-08-14] MEDS: ACETAMINOPHEN 325 MG TABLET PO PRN (13:17)
[2019-08-14 13:23] VITALS: BP 91/63
[2019-08-14] MEDS: RIVAROXABAN 20 MG TABLET PO SCH (16:59)
[2019-08-14 18:53] VITALS: BP 105/66
[2019-08-14] MEDS: MIRTAZAPINE 15 MG TABLET PO SCH (20:52)
[2019-08-15] MEDS: ALBUTEROL/IPRATROPIUM 2.5MG/0.5MG, 3 ML NPPB SCH ×4 (02:27→20:41)
[2019-08-15 05:18] LABS: ANION GAP 0 mmol/L (5-15); CALCIUM 8.4 mg/dL (8.5-10.1); CHLORIDE 98 mmol/L (98-107)
[2019-08-15] MEDS: FLUOXETINE HCL 20 MG CAPSULE PO SCH (08:32)
[2019-08-15] MEDS: FERROUS SULFATE 325 MG TABLET PO SCH (08:32)
[2019-08-15] MEDS: AMIODARONE 200 MG TABLET PO SCH (08:32)
[2019-08-15] MEDS: BENZTROPINE 1 MG TABLET PO SCH ×2 (08:32→20:03)
[2019-08-15] MEDS: RISPERIDONE 2 MG TABLET PO SCH ×2 (08:32→20:03)
[2019-08-15 08:37] VITALS: BP 131/57
[2019-08-15] MEDS: BUDESONIDE 0.5 MG/2 ML INHA NPPB SCH ×2 (09:00→20:41)
[2019-08-15 14:00] VITALS: BP 98/67
[2019-08-15] MEDS: RIVAROXABAN 20 MG TABLET PO SCH (16:45)
[2019-08-15] MEDS: SODIUM CHLORIDE 0.9% 1,000 ML IV SCH (16:46)
[2019-08-15 19:17] VITALS: BP 96/59
[2019-08-15] MEDS: MIRTAZAPINE 15 MG TABLET PO SCH (20:03)
[2019-08-16 01:10] VITALS: BP 126/83
[2019-08-16] MEDS: SODIUM CHLORIDE 0.9% 1,000 ML IV SCH ×3 (01:16→16:57)
[2019-08-16] MEDS: ALBUTEROL/IPRATROPIUM 2.5MG/0.5MG, 3 ML NPPB SCH ×4 (03:00→18:20)
[2019-08-16 03:51] LABS: CALCIUM 8.2 mg/dL (8.5-10.1); CHLORIDE 102 mmol/L (98-107); CREATININE 0.56 mg/dL (0.7-1.3)
[2019-08-16 03:52] LABS: BASOPHILS # (AUTO) 0.06 x10^3/uL (0-0.1); BASOPHILS % (AUTO) 1 % (0-1); EOSINOPHILS # (AUTO) 0.41 x10^3/uL (0-0.4); EOSINOPHILS % (AUTO) 5 % (1-7); LYMPHOCYTES % (AUTO) 14 % (22-44); MD NO; MEAN CORPUSCULAR HEMOGLOBIN 31.8 pg (27.5-34.5); MEAN CORPUSCULAR HGB CONC 32.5 g/dL (33.2-36.2); MEAN PLATELET VOLUME 6.7 fL (7.4-10.4); MONOCYTES # (AUTO) 0.85 x10^3/uL (0.2-0.8); MONOCYTES % (AUTO) 9 % (2-9); NEUTROPHILS # (AUTO) 6.46 x10^3/uL (1.8-6.8); NEUTROPHILS % (AUTO) 71 % (42-75); PLATELET COUNT 492 x10^3/uL (130-400); RED BLOOD COUNT 2.94 x10^6/uL (4.38-5.82); RED CELL DISTRIBUTION WIDTH 14.5 % (9.4-14.8)
[2019-08-16 03:59] LABS: ANION GAP 0 mmol/L (5-15)
[2019-08-16 07:45] VITALS: BP 98/56
[2019-08-16] MEDS: BUDESONIDE 0.5 MG/2 ML INHA NPPB SCH ×2 (08:00→18:20)
[2019-08-16] MEDS: FLUOXETINE HCL 20 MG CAPSULE PO SCH (08:20)
[2019-08-16] MEDS: FERROUS SULFATE 325 MG TABLET PO SCH (08:20)
[2019-08-16] MEDS: RISPERIDONE 2 MG TABLET PO SCH ×2 (08:22→21:10)
[2019-08-16] MEDS: AMIODARONE 200 MG TABLET PO SCH (08:23)
[2019-08-16] MEDS: BENZTROPINE 1 MG TABLET PO SCH ×2 (08:34→21:10)
[2019-08-16 13:24] VITALS: BP 124/70
[2019-08-16] MEDS: RIVAROXABAN 20 MG TABLET PO SCH (16:56)
[2019-08-16 19:02] VITALS: BP 101/58
[2019-08-16] MEDS: MIRTAZAPINE 15 MG TABLET PO SCH (21:10)
[2019-08-17 01:02] VITALS: BP 102/55
[2019-08-17] MEDS: SODIUM CHLORIDE 0.9% 1,000 ML IV SCH ×3 (02:01→18:50)
[2019-08-17] MEDS: ALBUTEROL/IPRATROPIUM 2.5MG/0.5MG, 3 ML NPPB SCH ×4 (03:10→20:32)
[2019-08-17 05:36] LABS: CHLORIDE 105 mmol/L (98-107)
[2019-08-17 05:45] LABS: ANION GAP 1 mmol/L (5-15); CREATININE 0.56 mg/dL (0.7-1.3)
[2019-08-17] MEDS: BUDESONIDE 0.5 MG/2 ML INHA NPPB SCH ×2 (06:55→20:33)
[2019-08-17 08:25] VITALS: BP 107/56
[2019-08-17] MEDS: FLUOXETINE HCL 20 MG CAPSULE PO SCH (09:19)
[2019-08-17] MEDS: BENZTROPINE 1 MG TABLET PO SCH ×2 (09:19→20:25)
[2019-08-17] MEDS: RISPERIDONE 2 MG TABLET PO SCH ×2 (09:19→20:25)
[2019-08-17] MEDS: FERROUS SULFATE 325 MG TABLET PO SCH (09:19)
[2019-08-17] MEDS: AMIODARONE 200 MG TABLET PO SCH (09:20)
[2019-08-17] MEDS: DIPHENHYDRAMINE 25 MG CAPSULE PO PRN ×2 (09:28→20:25)
[2019-08-17 13:02] VITALS: BP 111/62
[2019-08-17] MEDS: RIVAROXABAN 20 MG TABLET PO SCH (16:55)
[2019-08-17 18:55] VITALS: BP 117/66
[2019-08-17] MEDS: MIRTAZAPINE 15 MG TABLET PO SCH (20:25)
[2019-08-18 01:31] VITALS: BP 110/62
[2019-08-18] MEDS: SODIUM CHLORIDE 0.9% 1,000 ML IV SCH ×2 (02:50→10:59)
[2019-08-18] MEDS: ALBUTEROL/IPRATROPIUM 2.5MG/0.5MG, 3 ML NPPB SCH ×4 (02:53→20:22)
[2019-08-18 03:46] LABS: ANION GAP 2 mmol/L (5-15); CALCIUM 8.2 mg/dL (8.5-10.1); CHLORIDE 106 mmol/L (98-107); CREATININE 0.58 mg/dL (0.7-1.3)
[2019-08-18 07:30] VITALS: BP 118/60
[2019-08-18] MEDS: BUDESONIDE 0.5 MG/2 ML INHA NPPB SCH ×2 (07:55→20:22)
[2019-08-18] MEDS: FERROUS SULFATE 325 MG TABLET PO SCH (08:23)
[2019-08-18] MEDS: NICOTINE 7 MG/24 HR PATCH.TD24 TD SCH (08:23)
[2019-08-18] MEDS: FLUOXETINE HCL 20 MG CAPSULE PO SCH (08:24)
[2019-08-18] MEDS: BENZTROPINE 1 MG TABLET PO SCH ×2 (08:24→20:53)
[2019-08-18] MEDS: RISPERIDONE 2 MG TABLET PO SCH ×2 (08:24→20:53)
[2019-08-18] MEDS: AMIODARONE 200 MG TABLET PO SCH (08:24)
[2019-08-18] MEDS: DIPHENHYDRAMINE 25 MG CAPSULE PO PRN (08:25)
[2019-08-18 13:49] VITALS: BP 122/64
[2019-08-18] MEDS: ACETAMINOPHEN 325 MG TABLET PO PRN (14:20)
[2019-08-18] MEDS: RIVAROXABAN 20 MG TABLET PO SCH (16:26)
[2019-08-18 18:37] VITALS: BP 111/73
[2019-08-18 19:54] VITALS: BP 123/77
[2019-08-18 20:51] VITALS: BP 114/66
[2019-08-18] MEDS: MIRTAZAPINE 15 MG TABLET PO SCH (20:53)
[2019-08-19 02:04] VITALS: BP 94/55
[2019-08-19] MEDS: ALBUTEROL/IPRATROPIUM 2.5MG/0.5MG, 3 ML NPPB SCH ×4 (02:21→20:39)
[2019-08-19 06:50] VITALS: BP 98/57
[2019-08-19] MEDS: FERROUS SULFATE 325 MG TABLET PO SCH (07:57)
[2019-08-19] MEDS: ACETAMINOPHEN 325 MG TABLET PO PRN ×3 (07:58→18:47)
[2019-08-19] MEDS: NICOTINE 7 MG/24 HR PATCH.TD24 TD SCH (07:58)
[2019-08-19] MEDS: BENZTROPINE 1 MG TABLET PO SCH ×2 (07:58→20:22)
[2019-08-19] MEDS: AMIODARONE 200 MG TABLET PO SCH (07:58)
[2019-08-19] MEDS: FLUOXETINE HCL 20 MG CAPSULE PO SCH (07:58)
[2019-08-19] MEDS: RISPERIDONE 2 MG TABLET PO SCH ×2 (07:59→20:22)
[2019-08-19] MEDS: BUDESONIDE 0.5 MG/2 ML INHA NPPB SCH ×2 (09:15→20:39)
[2019-08-19] MEDS: POLYETHYLENE GLYCOL 17 GM PACKET PO PRN (09:28)
[2019-08-19 10:13] LABS: CALCIUM 8.8 mg/dL (8.5-10.1); CHLORIDE 101 mmol/L (98-107)
[2019-08-19 10:14] LABS: CREATININE 0.56 mg/dL (0.7-1.3)
[2019-08-19 10:37] LABS: ANION GAP 4 mmol/L (5-15)
[2019-08-19] MEDS ORDERED: SENNA/DOCUSATE TABLET PO PRN (13:30)
[2019-08-19] MEDS: RIVAROXABAN 20 MG TABLET PO SCH (16:44)
[2019-08-19 19:31] VITALS: BP 124/73
[2019-08-19] MEDS: MIRTAZAPINE 15 MG TABLET PO SCH (20:22)
[2019-08-20 01:25] VITALS: BP 124/64
[2019-08-20] MEDS: ALBUTEROL/IPRATROPIUM 2.5MG/0.5MG, 3 ML NPPB SCH ×4 (03:00→18:45)
[2019-08-20] MEDS: BUDESONIDE 0.5 MG/2 ML INHA NPPB SCH ×2 (06:13→18:45)
[2019-08-20 08:30] VITALS: BP 116/59
[2019-08-20] MEDS: FERROUS SULFATE 325 MG TABLET PO SCH (08:42)
[2019-08-20] MEDS: NICOTINE 7 MG/24 HR PATCH.TD24 TD SCH (08:42)
[2019-08-20] MEDS: RISPERIDONE 2 MG TABLET PO SCH ×2 (08:43→20:26)
[2019-08-20] MEDS: FLUOXETINE HCL 20 MG CAPSULE PO SCH (08:43)
[2019-08-20] MEDS: AMIODARONE 200 MG TABLET PO SCH (08:44)
[2019-08-20] MEDS: BENZTROPINE 1 MG TABLET PO SCH ×2 (09:00→20:26)
[2019-08-20 16:09] VITALS: BP 124/72
[2019-08-20] MEDS: RIVAROXABAN 20 MG TABLET PO SCH (17:43)
[2019-08-20 18:59] VITALS: BP 95/53
[2019-08-20] MEDS: MIRTAZAPINE 15 MG TABLET PO SCH (20:26)
[2019-08-21 02:00] VITALS: BP 123/69
[2019-08-21] MEDS: ALBUTEROL/IPRATROPIUM 2.5MG/0.5MG, 3 ML NPPB SCH ×4 (03:15→20:25)
[2019-08-21 07:44] LABS: ANION GAP 0 mmol/L (5-15); CALCIUM 8.5 mg/dL (8.5-10.1); CHLORIDE 104 mmol/L (98-107); CREATININE 0.56 mg/dL (0.7-1.3)
[2019-08-21] MEDS: FERROUS SULFATE 325 MG TABLET PO SCH (08:00)
[2019-08-21] MEDS: NICOTINE 7 MG/24 HR PATCH.TD24 TD SCH (08:02)
[2019-08-21] MEDS: RISPERIDONE 2 MG TABLET PO SCH ×2 (08:04→20:10)
[2019-08-21] MEDS: FLUOXETINE HCL 20 MG CAPSULE PO SCH (08:04)
[2019-08-21] MEDS: BENZTROPINE 1 MG TABLET PO SCH ×2 (08:04→20:10)
[2019-08-21] MEDS: AMIODARONE 200 MG TABLET PO SCH (08:04)
[2019-08-21 08:15] VITALS: BP 106/61
[2019-08-21] MEDS: BUDESONIDE 0.5 MG/2 ML INHA NPPB SCH ×2 (08:15→20:25)
[2019-08-21] MEDS: DIPHENHYDRAMINE 25 MG CAPSULE PO PRN (12:32)
[2019-08-21 13:02] VITALS: BP 110/57
[2019-08-21] MEDS: RIVAROXABAN 20 MG TABLET PO SCH (17:27)
[2019-08-21 19:55] VITALS: BP 100/59
[2019-08-21] MEDS: MIRTAZAPINE 15 MG TABLET PO SCH (20:10)
[2019-08-22 00:47] VITALS: BP 109/63
[2019-08-22] MEDS: ALBUTEROL/IPRATROPIUM 2.5MG/0.5MG, 3 ML NPPB SCH ×4 (02:27→20:40)
[2019-08-22 04:47] LABS: CALCIUM 8.4 mg/dL (8.5-10.1); CREATININE 0.63 mg/dL (0.7-1.3)
[2019-08-22 05:00] LABS: ANION GAP 3 mmol/L (5-15); CHLORIDE 104 mmol/L (98-107)
[2019-08-22 07:58] VITALS: BP 107/69
[2019-08-22] MEDS: NICOTINE 7 MG/24 HR PATCH.TD24 TD SCH (08:30)
[2019-08-22] MEDS: AMIODARONE 200 MG TABLET PO SCH (08:31)
[2019-08-22] MEDS: BENZTROPINE 1 MG TABLET PO SCH ×2 (08:31→20:01)
[2019-08-22] MEDS: FERROUS SULFATE 325 MG TABLET PO SCH (08:31)
[2019-08-22] MEDS: RISPERIDONE 2 MG TABLET PO SCH ×2 (08:31→20:01)
[2019-08-22] MEDS: FLUOXETINE HCL 20 MG CAPSULE PO SCH (08:31)
[2019-08-22] MEDS: BUDESONIDE 0.5 MG/2 ML INHA NPPB SCH ×2 (09:24→20:40)
[2019-08-22 12:33] VITALS: BP 92/54
[2019-08-22] MEDS: RIVAROXABAN 20 MG TABLET PO SCH (16:51)
[2019-08-22 18:57] VITALS: BP 118/63
[2019-08-22] MEDS: MIRTAZAPINE 15 MG TABLET PO SCH (20:02)
[2019-08-23] MEDS: ALBUTEROL/IPRATROPIUM 2.5MG/0.5MG, 3 ML NPPB SCH ×4 (02:39→20:35)
[2019-08-23 02:56] VITALS: BP 122/70
[2019-08-23 05:40] LABS: ANION GAP 1 mmol/L (5-15); CALCIUM 8.5 mg/dL (8.5-10.1); CHLORIDE 105 mmol/L (98-107); CREATININE 0.64 mg/dL (0.7-1.3)
[2019-08-23] MEDS: BUDESONIDE 0.5 MG/2 ML INHA NPPB SCH ×2 (07:21→20:35)
[2019-08-23 07:29] VITALS: BP 123/76
[2019-08-23] MEDS: NICOTINE 7 MG/24 HR PATCH.TD24 TD SCH (09:05)
[2019-08-23] MEDS: RISPERIDONE 2 MG TABLET PO SCH ×2 (09:07→20:18)
[2019-08-23] MEDS: BENZTROPINE 1 MG TABLET PO SCH ×2 (09:07→20:18)
[2019-08-23] MEDS: FERROUS SULFATE 325 MG TABLET PO SCH (09:07)
[2019-08-23] MEDS: FLUOXETINE HCL 20 MG CAPSULE PO SCH (09:08)
[2019-08-23] MEDS: AMIODARONE 200 MG TABLET PO SCH (09:08)
[2019-08-23 12:56] VITALS: BP 129/61
[2019-08-23 13:06] VITALS: BP 119/76
[2019-08-23] MEDS ORDERED: ACETAMINOPHEN 325 MG TABLET PO PRN (14:30)
[2019-08-23] MEDS: RIVAROXABAN 20 MG TABLET PO SCH (17:09)
[2019-08-23] MEDS: MIRTAZAPINE 15 MG TABLET PO SCH (20:18)
[2019-08-23 20:25] VITALS: BP 112/66
[2019-08-24 00:15] VITALS: BP 122/78
[2019-08-24] MEDS: ALBUTEROL/IPRATROPIUM 2.5MG/0.5MG, 3 ML NPPB SCH ×4 (03:15→20:20)
[2019-08-24 06:40] VITALS: BP 106/57
[2019-08-24] MEDS: AMIODARONE 200 MG TABLET PO SCH (08:14)
[2019-08-24] MEDS: BENZTROPINE 1 MG TABLET PO SCH ×2 (08:14→20:18)
[2019-08-24] MEDS: FERROUS SULFATE 325 MG TABLET PO SCH (08:14)
[2019-08-24] MEDS: NICOTINE 7 MG/24 HR PATCH.TD24 TD SCH (08:14)
[2019-08-24] MEDS: RISPERIDONE 2 MG TABLET PO SCH ×2 (08:15→20:18)
[2019-08-24] MEDS: FLUOXETINE HCL 20 MG CAPSULE PO SCH (08:15)
[2019-08-24] MEDS: BUDESONIDE 0.5 MG/2 ML INHA NPPB SCH ×2 (10:11→20:20)
[2019-08-24 13:45] VITALS: BP 104/64
[2019-08-24] MEDS: RIVAROXABAN 20 MG TABLET PO SCH (16:59)
[2019-08-24 19:06] VITALS: BP 98/64
[2019-08-24] MEDS: MIRTAZAPINE 15 MG TABLET PO SCH (20:18)
[2019-08-25] VITALS (10 sets, daily range): BP systolic 97–126; BP diastolic 54–87
[2019-08-25] MEDS: ALBUTEROL/IPRATROPIUM 2.5MG/0.5MG, 3 ML NPPB SCH ×4 (03:05→20:13)
[2019-08-25] MEDS: NICOTINE 7 MG/24 HR PATCH.TD24 TD SCH (08:34)
[2019-08-25] MEDS: RISPERIDONE 2 MG TABLET PO SCH ×2 (08:34→19:49)
[2019-08-25] MEDS: FERROUS SULFATE 325 MG TABLET PO SCH (08:34)
[2019-08-25] MEDS: FLUOXETINE HCL 20 MG CAPSULE PO SCH (08:34)
[2019-08-25] MEDS: BENZTROPINE 1 MG TABLET PO SCH ×2 (08:35→19:49)
[2019-08-25] MEDS: AMIODARONE 200 MG TABLET PO SCH (08:35)
[2019-08-25] MEDS: BUDESONIDE 0.5 MG/2 ML INHA NPPB SCH ×2 (09:29→20:13)
[2019-08-25] MEDS: RIVAROXABAN 20 MG TABLET PO SCH (17:23)
--- NOTE | 2019-08-25 19:30 | NUR ---
YULI VILLEGAS Fall Risk Medication(s) present and receiving anticoagulants. Signed: 08/25/19 at 1931 by Debbie MCKEE
[2019-08-25] MEDS: MIRTAZAPINE 15 MG TABLET PO SCH (19:49)
[2019-08-26] MEDS: ALBUTEROL/IPRATROPIUM 2.5MG/0.5MG, 3 ML NPPB SCH ×4 (02:53→19:09)
[2019-08-26 03:48] VITALS: BP 107/65
[2019-08-26 07:21] VITALS: BP 118/69
[2019-08-26] MEDS: BENZTROPINE 1 MG TABLET PO SCH ×2 (08:35→20:39)
[2019-08-26] MEDS: FLUOXETINE HCL 20 MG CAPSULE PO SCH (08:36)
[2019-08-26] MEDS: FERROUS SULFATE 325 MG TABLET PO SCH (08:36)
[2019-08-26] MEDS: RISPERIDONE 2 MG TABLET PO SCH ×2 (08:37→20:39)
[2019-08-26] MEDS: AMIODARONE 200 MG TABLET PO SCH (08:37)
[2019-08-26] MEDS: NICOTINE 7 MG/24 HR PATCH.TD24 TD SCH (08:46)
[2019-08-26] MEDS: BUDESONIDE 0.5 MG/2 ML INHA NPPB SCH ×2 (09:10→19:10)
[2019-08-26 12:07] VITALS: BP 120/70
[2019-08-26] MEDS: RIVAROXABAN 20 MG TABLET PO SCH (17:44)
[2019-08-26 18:54] VITALS: BP 102/57
[2019-08-26] MEDS: MIRTAZAPINE 15 MG TABLET PO SCH (20:39)
[2019-08-27 02:05] VITALS: BP 101/60
[2019-08-27] MEDS: ALBUTEROL/IPRATROPIUM 2.5MG/0.5MG, 3 ML NPPB SCH ×4 (03:00→20:10)
[2019-08-27 07:23] VITALS: BP 125/77
[2019-08-27] MEDS: BUDESONIDE 0.5 MG/2 ML INHA NPPB SCH ×2 (07:55→20:10)
[2019-08-27] MEDS: BENZTROPINE 1 MG TABLET PO SCH ×2 (08:16→21:34)
[2019-08-27] MEDS: FLUOXETINE HCL 20 MG CAPSULE PO SCH (08:16)
[2019-08-27] MEDS: FERROUS SULFATE 325 MG TABLET PO SCH (08:16)
[2019-08-27] MEDS: NICOTINE 7 MG/24 HR PATCH.TD24 TD SCH (08:16)
[2019-08-27] MEDS: AMIODARONE 200 MG TABLET PO SCH (08:17)
[2019-08-27] MEDS: RISPERIDONE 2 MG TABLET PO SCH ×2 (08:17→21:35)
[2019-08-27] MEDS ORDERED: FLUTICASONE/VILANTEROL 100-25MCG/INH INH SCH (10:00)
[2019-08-27] MEDS ORDERED: ALBUTEROL SULFATE 2.5 MG/3 ML HHN SCH (10:30)
[2019-08-27 13:16] VITALS: BP 121/68
[2019-08-27] MEDS: RIVAROXABAN 20 MG TABLET PO SCH (16:55)
[2019-08-27 19:41] VITALS: BP 124/68
[2019-08-27] MEDS ORDERED: BUDESONIDE 0.5 MG/2 ML INHA HHN SCH (21:00)
[2019-08-27] MEDS: MIRTAZAPINE 15 MG TABLET PO SCH (21:34)
[2019-08-28 01:48] VITALS: BP 97/54
[2019-08-28] MEDS: ALBUTEROL/IPRATROPIUM 2.5MG/0.5MG, 3 ML NPPB SCH ×4 (02:57→20:44)
[2019-08-28 08:01] VITALS: BP 107/68
[2019-08-28] MEDS: NICOTINE 7 MG/24 HR PATCH.TD24 TD SCH (08:26)
[2019-08-28] MEDS: AMIODARONE 200 MG TABLET PO SCH (08:27)
[2019-08-28] MEDS: FERROUS SULFATE 325 MG TABLET PO SCH (08:27)
[2019-08-28] MEDS: RISPERIDONE 2 MG TABLET PO SCH ×2 (08:27→20:38)
[2019-08-28] MEDS: FLUOXETINE HCL 20 MG CAPSULE PO SCH (08:27)
[2019-08-28] MEDS: BENZTROPINE 1 MG TABLET PO SCH ×2 (08:27→20:38)
[2019-08-28] MEDS: BUDESONIDE 0.5 MG/2 ML INHA NPPB SCH ×2 (09:00→20:44)
[2019-08-28 13:02] VITALS: BP 100/57
[2019-08-28] MEDS: RIVAROXABAN 20 MG TABLET PO SCH (17:29)
[2019-08-28 19:23] VITALS: BP 120/71
[2019-08-28] MEDS: MIRTAZAPINE 15 MG TABLET PO SCH (20:38)
[2019-08-29 01:25] VITALS: BP 111/66
[2019-08-29] MEDS: ALBUTEROL/IPRATROPIUM 2.5MG/0.5MG, 3 ML NPPB SCH ×3 (02:50→18:43)
[2019-08-29] MEDS: AMIODARONE 200 MG TABLET PO SCH (08:02)
[2019-08-29] MEDS: FLUOXETINE HCL 20 MG CAPSULE PO SCH (08:03)
[2019-08-29] MEDS: BENZTROPINE 1 MG TABLET PO SCH ×2 (08:03→20:28)
[2019-08-29] MEDS: RISPERIDONE 2 MG TABLET PO SCH ×2 (08:03→20:28)
[2019-08-29] MEDS: FERROUS SULFATE 325 MG TABLET PO SCH (08:03)
[2019-08-29] MEDS: NICOTINE 7 MG/24 HR PATCH.TD24 TD SCH (08:03)
[2019-08-29 08:04] VITALS: BP 114/69
[2019-08-29] MEDS: BUDESONIDE 0.5 MG/2 ML INHA NPPB SCH ×2 (09:00→18:43)
[2019-08-29 14:07] VITALS: BP 101/62
[2019-08-29] MEDS: RIVAROXABAN 20 MG TABLET PO SCH (16:38)
[2019-08-29 18:41] VITALS: BP 116/65
[2019-08-29] MEDS: MIRTAZAPINE 15 MG TABLET PO SCH (20:27)
[2019-08-30 03:15] VITALS: BP 108/70
[2019-08-30] MEDS: NICOTINE 7 MG/24 HR PATCH.TD24 TD SCH (08:10)
[2019-08-30] MEDS: BENZTROPINE 1 MG TABLET PO SCH ×2 (08:11→20:43)
[2019-08-30] MEDS: FERROUS SULFATE 325 MG TABLET PO SCH (08:11)
[2019-08-30] MEDS: RISPERIDONE 2 MG TABLET PO SCH ×2 (08:11→20:43)
[2019-08-30] MEDS: AMIODARONE 200 MG TABLET PO SCH (08:11)
[2019-08-30] MEDS: FLUOXETINE HCL 20 MG CAPSULE PO SCH (08:11)
[2019-08-30 08:28] VITALS: BP 100/66
[2019-08-30] MEDS: ALBUTEROL/IPRATROPIUM 2.5MG/0.5MG, 3 ML NPPB SCH ×2 (08:59→20:22)
[2019-08-30] MEDS: BUDESONIDE 0.5 MG/2 ML INHA NPPB SCH ×2 (08:59→20:22)
[2019-08-30 15:27] VITALS: BP 110/73
[2019-08-30] MEDS: RIVAROXABAN 20 MG TABLET PO SCH (16:26)
[2019-08-30] MEDS: POLYETHYLENE GLYCOL 17 GM PACKET PO PRN (16:27)
[2019-08-30 18:42] VITALS: BP 101/56
[2019-08-30 20:34] VITALS: BP 118/65
[2019-08-30] MEDS: MIRTAZAPINE 15 MG TABLET PO SCH (20:43)
[2019-08-31] VITALS: BP 95/58
[2019-08-31 01:00] VITALS: BP 112/66
[2019-08-31] MEDS: BUDESONIDE 0.5 MG/2 ML INHA NPPB SCH ×2 (07:00→21:05)
[2019-08-31] MEDS: ALBUTEROL/IPRATROPIUM 2.5MG/0.5MG, 3 ML NPPB SCH ×2 (07:00→21:05)
[2019-08-31 08:18] VITALS: BP 108/66
[2019-08-31] MEDS: FERROUS SULFATE 325 MG TABLET PO SCH (10:32)
[2019-08-31] MEDS: BENZTROPINE 1 MG TABLET PO SCH ×2 (10:33→19:42)
[2019-08-31] MEDS: AMIODARONE 200 MG TABLET PO SCH (10:33)
[2019-08-31] MEDS: RISPERIDONE 2 MG TABLET PO SCH ×2 (10:33→19:42)
[2019-08-31] MEDS: FLUOXETINE HCL 20 MG CAPSULE PO SCH (10:33)
[2019-08-31] MEDS: NICOTINE 7 MG/24 HR PATCH.TD24 TD SCH (10:33)
[2019-08-31 14:05] VITALS: BP 110/70
[2019-08-31] MEDS: RIVAROXABAN 20 MG TABLET PO SCH (18:13)
[2019-08-31 19:39] VITALS: BP 116/61
[2019-08-31] MEDS: MIRTAZAPINE 15 MG TABLET PO SCH (19:42)
[2019-09-01 01:41] VITALS: BP 110/70
[2019-09-01] MEDS: ALBUTEROL/IPRATROPIUM 2.5MG/0.5MG, 3 ML NPPB SCH ×2 (07:35→20:46)
[2019-09-01] MEDS: BUDESONIDE 0.5 MG/2 ML INHA NPPB SCH ×2 (07:35→20:46)
[2019-09-01 08:10] VITALS: BP 110/64
[2019-09-01] MEDS: AMIODARONE 200 MG TABLET PO SCH (08:21)
[2019-09-01] MEDS: FERROUS SULFATE 325 MG TABLET PO SCH (08:21)
[2019-09-01] MEDS: NICOTINE 7 MG/24 HR PATCH.TD24 TD SCH (08:21)
[2019-09-01] MEDS: FLUOXETINE HCL 20 MG CAPSULE PO SCH (08:22)
[2019-09-01] MEDS: BENZTROPINE 1 MG TABLET PO SCH ×2 (08:22→21:07)
[2019-09-01] MEDS: RISPERIDONE 2 MG TABLET PO SCH ×2 (08:22→21:08)
[2019-09-01 14:45] VITALS: BP 106/65
[2019-09-01] MEDS ORDERED: ALBUTEROL/IPRATROPIUM 2.5MG/0.5MG, 3 ML NPPB PRN (15:30)
[2019-09-01] MEDS: RIVAROXABAN 20 MG TABLET PO SCH (17:17)
[2019-09-01 18:48] VITALS: BP 99/59
[2019-09-01] MEDS: MIRTAZAPINE 15 MG TABLET PO SCH (21:07)
[2019-09-01 21:09] VITALS: BP 105/67
[2019-09-02 01:58] VITALS: BP 109/67
[2019-09-02 08:44] VITALS: BP 103/64
[2019-09-02] MEDS: FERROUS SULFATE 325 MG TABLET PO SCH (08:49)
[2019-09-02] MEDS: FLUOXETINE HCL 20 MG CAPSULE PO SCH (08:49)
[2019-09-02] MEDS: AMIODARONE 200 MG TABLET PO SCH (08:50)
[2019-09-02] MEDS: BENZTROPINE 1 MG TABLET PO SCH (08:50)
[2019-09-02] MEDS: RISPERIDONE 2 MG TABLET PO SCH (08:50)
[2019-09-02] MEDS: NICOTINE 7 MG/24 HR PATCH.TD24 TD SCH (08:50)
[2019-09-02 09:45] VITALS: BP 114/69
[2019-09-02 12:24] VITALS: BP 115/75
== END 2019-09-02 16:18 | DRG 871 ==
LOC: ED 12:49 → CCU 15:18 → 4WST 08-02 18:15 → CCU 08-08 11:55 → 4WST 08-11 10:52 → 3N 08-14 15:47
PROVIDERS: ADMIT Family Medicine; ATTEND Family Medicine
PROC: 5A1935Z Respiratory Ventilation, Less than 24 Consecutive Hours (ICD-10-PCS; 2019-08-01)
PROC: 0BH17EZ Insertion of Endotracheal Airway into Trachea, Via Natural or Artificial Opening (ICD-10-PCS; 2019-08-01)
PROC: 05HM33Z Insertion of Infusion Device into Right Internal Jugular Vein, Percutaneous Approach (ICD-10-PCS; 2019-08-01)
PROC: B543ZZA Ultrasonography of Right Jugular Veins, Guidance (ICD-10-PCS; 2019-08-01)
PROC: 5A09357 Assistance with Respiratory Ventilation, Less than 24 Consecutive Hours, Continuous Positive Airway Pressure (ICD-10-PCS; 2019-08-01)
PROC: 02HV33Z Insertion of Infusion Device into Superior Vena Cava, Percutaneous Approach (ICD-10-PCS; principal; 2019-08-06)
PROC: B548ZZA Ultrasonography of Superior Vena Cava, Guidance (ICD-10-PCS; 2019-08-06)
PROC: B5181ZA Fluoroscopy of Superior Vena Cava using Low Osmolar Contrast, Guidance (ICD-10-PCS; 2019-08-06)
DX: A40.9 Streptococcal sepsis, unspecified (principal); G93.41 Metabolic encephalopathy; J96.21 Acute and chronic respiratory failure with hypoxia; N17.0 Acute kidney failure with tubular necrosis; R65.21 Severe sepsis with septic shock; J13 Pneumonia due to Streptococcus pneumoniae; J96.22 Acute and chronic respiratory failure with hypercapnia; D68.69 Other thrombophilia; F19.20 Other psychoactive substance dependence, uncomplicated; I48.20 Chronic atrial fibrillation, unspecified; I48.92 Unspecified atrial flutter; I50.32 Chronic diastolic (congestive) heart failure; J44.0 Chronic obstructive pulmonary disease with (acute) lower respiratory infection; J44.1 Chronic obstructive pulmonary disease with (acute) exacerbation; Z99.11 Dependence on respirator [ventilator] status; S01.81XA Laceration without foreign body of other part of head, initial encounter; D64.9 Anemia, unspecified; E11.9 Type 2 diabetes mellitus without complications; E86.0 Dehydration; F17.210 Nicotine dependence, cigarettes, uncomplicated; F20.9 Schizophrenia, unspecified; I11.0 Hypertensive heart disease with heart failure; I25.2 Old myocardial infarction; I27.29 Other secondary pulmonary hypertension; I48.0 Paroxysmal atrial fibrillation; W01.0XXA Fall on same level from slipping, tripping and stumbling without subsequent striking against object, initial encounter; Y93.89 Activity, other specified; Y92.049 Unspecified place in boarding-house as the place of occurrence of the external cause; Y99.8 Other external cause status; Z79.01 Long term (current) use of anticoagulants; Z83.3 Family history of diabetes mellitus; Z91.14 Patient's other noncompliance with medication regimen; Z91.81 History of falling; Z99.81 Dependence on supplemental oxygen
CPT/HCPCS: 31500; 36415; 36556; 36573; 36600; 70450; 71045; 80048; 80053; 80307; 82728; 82803; 83540; 83550; 83605; 83735; 83880; 84439; 84443; 84466; 84478; 84481; 84484; 85025; 85610; 85730; 86480; 87040; 87070; 87081; 87181; 87184; 87205; 90686; 93005; 93306; 94002; 94003; 94640; 96361; 96374; 96375; G0378; J0456; J0696; J2250; J2704; J7060; J7620; J7626; C1751; J0282; J0330; J1120; J2930; J3475; J3490; J7030; J7050; J7512; Q0163